=== PATIENT | male | born 2000 | race Caucasian/White ===

== ENCOUNTER 2020-10-29 00:44 | Day surgery (SDC) | payer BC, SELFPAY ==
[2020-10-27 10:40] VITALS: BMI 22.4
--- NOTE | 2020-10-27 14:20 | PM.IMHP ---
H&P: HPI History of Present Illness Date/Time: 10/27/20 14:20 Patient presents for planned surgical procedure no changes in history symptoms. Chief Complaint: Chronic tonsillitis, recurrent tonsillitis, chronic pharyngitis,recurrent pharyngitis Review of Systems Constitutional: Constitutional: Denies fatigue, Denies fever(s) and Denies lethargy Eyes: Eyes: Denies blurry vision and Denies change in vision ENT: Reports as per HPI Cardiovascular: Cardiovascular: Denies chest pain Respiratory: Respiratory: Denies cough Endocrine: Endocrine: Denies fatigue Hematologic/Lymphatic: Hematologic/Lymphatic: Denies easy bleeding, Denies easy bruising and Denies lymphadenopathy Allergic/Immunologic: Allergic/Immunologic: Denies seasonal rhinorrhea [facility] Past Medical History Medical History Elevated blood pressure reading Family History Family History Father Diabetes mellitus Grandparent Diabetes mellitus Heart disease Grandparent Cancer Heart disease Other Family history of coronary artery disease Hypertension Social History Social History Smoking status: Never smoker Alcohol intake: current Drinks per week: 1 Substance use: never Substance use type: does not use Living arrangements: with family Spiritual care concerns: No Meds Home Medications and Allergies Home Medications Medication Instructions Recorded Confirmed Type finasteride 1 mg PO DAILY 10/27/20 10/27/20 History Allergies Allergy/AdvReac Type Severity Reaction Status Date / Time No Known Allergies Allergy Verified 10/27/20 10:38 Exam Const: General: cooperative, healthy appearing, comfortable, well developed and alert HENMT: Head: normal to inspection, normocephalic and atraumatic Ears: hearing grossly normal bilaterally, external ears normal, TM's normal bilaterally and EAC's normal General nose exam: Normal external nose present, Normal nares present, No nasal polyps present, Normal nasal mucous membranes and turbinates present and Normal septum present Face and sinus: normal facial exam Mouth: Yes Normal oral and palatal mucosa present, Yes lip normal, Yes tongue normal, Yes oropharynx normal and Yes moist mucous membranes Teeth and gingiva: dentition normal and gingiva normal Throat: posterior oropharynx normal, tonisls abnormal ( 3+ cryptic edematous stones) and uvula midline Eyes: General: appearance normal, both eyes and all related structures Periorbital: periorbital findings normal Eyelids: eyelids normal Conjunctivae: conjunctivae normal Sclera: sclerae normal Neck: Neck: normal visual inspection, full ROM and no lymphadenopathy Thyroid: thyroid normal Lymphatic: no lymphadenopathy noted Resp: Effort & Inspection: normal respiratory effort and able to speak in complete sentences Cardio: Jugular venous distension: no JVD Neuro: Cranial nerves: Yes CN's II-XII intact bilaterally Assessment and Plan Assessment and plan (1) Chronic tonsillitis: Code(s): J35.01 - Chronic tonsillitis Status: Acute Assessment and Plan: plan is for the OR for tonsillectomy. Risks were discussed in great detail including bleeding infection damage to surrounding structures need for further procedures tongue on miss tongue pain dental pain accidental knocking out of teeth coughing ear pain halitosis. Patient voiced understanding of these risks and agreed also was discussed the significant risk 3-5% of postoperative bleeding. (2) Recurrent tonsillitis: Code(s): J03.91 - Acute recurrent tonsillitis, unspecified Status: Acute
[2020-10-29] VITALS (8 sets, daily range): BP systolic 80–138; BP diastolic 48–81; PULSE 54–84; RESP 12–16; TEMP 36.9; O2SAT 93–100
--- NOTE | 2020-10-29 07:03 | WPDHPUPDATE1 ---
History and Physical Update Update Date/Time: 10/29/20 07:03 History and Physical has been reviewed, including an updated exam of the patient. There are NO changes in the patient's condition. Risks, benefits, and alternatives have been discussed and questions answered. Patient agrees to proceed with procedure.
[2020-10-29] MEDS: ACETAMINOPHEN 500 MG TABLET 1000 MG PO (08:48)
--- NOTE | 2020-10-29 09:39 | P.PNAN_ITS ---
Anes - Initial Pre Proc Eval Procedure: Operation Date: 10/29/20 10:30 Proposed Procedures p Tonsillectomy - Gab Fitzgerald MD Date/Time: 10/29/20 09:39 Surgeon: Gab Fitzgerald MD Pre Op Diagnosis: chronic tonsilitis Patient Data Age: 19 Gender: M Height: 1.83 m Weight: 79.75 kg Allergies Allergy/AdvReac Type Severity Reaction Status Date / Time No Known Allergies Allergy Verified 10/29/20 08:45 Home Medications Medication Instructions Recorded Confirmed Type finasteride 1 mg PO DAILY 10/27/20 10/29/20 History Patient hx anesthesia problems: none Family hx anesthesia problems: none [facility] Past Medical History Medical History Elevated blood pressure reading Family History Family History Father Diabetes mellitus Grandparent Diabetes mellitus Heart disease Grandparent Cancer Heart disease Other Family history of coronary artery disease Hypertension Social History Social History Smoking status: Never smoker Alcohol intake: current Drinks per week: 1 Substance use: never Substance use type: does not use Living arrangements: with family Spiritual care concerns: No Anes - Eval Final PreProcedure Day of Procedure 10/29/20 09:39 Patient weight: normal Heart: regular rate and rhythm Lungs: clear to auscultation Airway: Mallampati scale class 1 Neurological: alert and oriented Last oral intake: >/= 8 hours ASA classification: I Emergent: no Anesthetic plan: proceed Anesthesia type and monitoring: general ETT and standard monitoring Informed Consent: The patient's anesthetic plan and its attendant risks and benefits were discussed with the patient/family/POA. Questions were solicited and answers provided to the satisfaction of the patient/family/POA.
[2020-10-29] MEDS: LACTATED RINGERS 1,000 ML 30 ML IV CONT ×2 (09:50→11:23)
--- NOTE | 2020-10-29 11:32 | P.OP_ITS ---
Procedure Note - Detailed Date of Procedure 10/29/20 Pre-op Diagnosis chronic tonsilitis , recurrent tonsillitis Post-op Diagnosis same Procedure Performed tonsillectomy Surgeon Gab Fitzgerald MD Analog Circuit Designer none Anesthesia general Indications see above Findings 3+ endophytic tonsils cryptic stones purulence present Description of Procedure patient was correctly identified consent was verified in the preoperative holding area. The patient was then brought to the operating room and a time-out was performed. General anesthesia was induced and endotracheal tube was secured the patient's airway. The patient was then prepped and draped for the aforementioned procedures. Second timeout performed. McIvor mouth gag inserted revealing tonsils which are described above. Tonsils grasped with curved Allis forceps removed in the extracapsular plane using Bovie electrocautery at a setting of 10. Hemostasis achieved using intermittent application of suction Bovie electrocautery at a setting of 12. McIvor mouthgag lowered and reopened 30 seconds later to reveal adequate hemostasis. McIvor mouth gag was then removed. Of note this was performed bilaterally the exact same procedure with the exact same findings. Care the patient was turned over to Anesthesiology I performed all dictated portions. Estimated Blood Loss 10 Drains No Packing No Pathology yes Complications No immediate complications Condition stable Disposition PACU
[2020-10-29] MEDS: fentaNYL CITRATE INJ (*CRX) 100 MCG/2 ML VIAL 25 MCG IV PUSH ×8 (11:49→13:02)
[2020-10-29] MEDS: oxyCODONE HCL (*CRX) 5 MG TAB IR PO (12:30)
== END 2020-10-29 13:15 | disposition home or self-care (01) ==
PROVIDERS: PCP Family Medicine; Visit Provider Otolaryngology
PROC: (CPT 42826; principal; 2020-10-29 10:30)
DX: J35.01 Chronic tonsillitis (principal)
CPT/HCPCS: 42826; 88302; A9270; J0330; J1100; J2250; J2405; J2704; J3010; J7120

== ENCOUNTER 2020-11-02 00:18 | Emergency (ER) | payer BC, SELFPAY ==
--- NOTE | 2020-11-02 00:22 | PC.NURSE ---
Pt here c mother who reports pt had tonsillectomy 4 days ago and has vomited blood, and now appear altered. on arrival, pt hyperventilating and states I'm gonna pass out. placed in wc with assist of flatbed truck driver and taken to room 8.
[2020-11-02 00:32] VITALS: BP 123/47; PULSE 87; RESP 18; TEMP 37.2; O2SAT 100
[2020-11-02] MEDS: SODIUM CHLORIDE 0.9% IV 1,000 ML 999 ML IV CONT ×2 (00:58)
[2020-11-02] MEDS: ONDANSETRON INJ 4 MG/2 ML VIAL IV PUSH (01:00)
[2020-11-02] MEDS: MORPHINE SULFATE (*CRX) 4 MG/ML INJ IV PUSH ×2 (01:02→04:59)
[2020-11-02 01:11] LABS: Alanine Aminotransferase 21 U/L (4-50); Albumin Level 4.7 g/dL (3.5-5.1); Alkaline Phosphatase 98 U/L (38-126); Anion Gap 20 mmol/L (8-16); Aspartate Amino Transferase 25 U/L (17-59); Bilirubin,Total 1.3 mg/dL (0.2-1.3); Blood Urea Nitrogen 17 mg/dL (9-20); Calcium 10.5 mg/dL (8.4-10.2); Carbon Dioxide 21 mmol/L (22-30); Chloride 96 mmol/L (98-107); Estimated CRCL calculation 104 ml/min; Estimated Glomerular Filt Rate > 60; Glucose 109 mg/dL (65-110); Potassium 3.5 mmol/L (3.4-5.0); Sodium 137 mmol/L (137-145)
[2020-11-02 01:16] LABS: Basophils Percent Auto 0.1 % (0.2-1.2); Eosinophils Absolute Auto 0.1 K/mm3 (0-0.3); Eosinophils Percent Auto 1.2 % (0-4.4); Hematocrit 48.9 % (42.0-52.0); Hemoglobin 16.9 g/dL (14.0-18.0); Immature Granulocyte Absolute 0.02 K/mm3 (0.00-0.031); Immature Granulocyte Percent A 0.2 % (0-0.5); Lymphocytes Absolute Auto 2.53 K/mm3 (0.9-3.2); Mean Corpuscular HGB Conc 34.6 g/dl (32-36); Mean Corpuscular Hemoglobin 29.9 pg (26-34); Mean Corpuscular Volume 86.4 fl (80-100); Monocytes Absolute Auto 0.7 K/mm3 (0.1-0.6); Monocytes Percent Auto 8.6 % (2.6-8.5); Neutrophils Absolute Auto 4.8 K/mm3 (1.3-6.7); Neutrophils Percent Auto 58.9 % (45.5-73.1); Platelet Count Result 221 k/mm3 (150-375); Red Blood Count 5.66 M/mm3 (4.6-6.20); Red Cell Distribution Width 11.5 % (11.5-14.5); White Blood Count 8.2 K/mm3 (4.5-10.0)
[2020-11-02 01:22] LABS: Add Urine Microscopic? YES; Appearance Urine Clear (Clear); Bacteria Urine Trace /hpf; Bilirubin Urine Negative (Negative); Blood Urine Negative (Negative); Color Urine Yellow (Yellow); Glucose Urine UA Negative (Negative); Ketones Urine 2+ mg/dL (Negative); Leukocyte Esterase Ur Negative LEU/UL (Negative); Mucus Urine Few /lpf; Nitrate Urine Negative (Negative); Protein Urine Negative (Negative); RBC Urine 0-2 /hpf (0-2); Specific Grav Ur 1.026 (1.001-1.035); Squamous Epithelial Cell Urine Rare /hpf (Few); WBC Urine 0-3 /hpf
--- NOTE | 2020-11-02 02:58 | ED.GENADULT ---
HPI - General Adult General Chief complaint: Unspecified Stated complaint: altered Time Seen by Provider: 11/02/20 00:24 History of Present Illness HPI narrative: Patient 19-year-old gentleman who presents the emergency department with chief complaint of confusion. Patient reports that he just had his tonsils removed on Sunday and subsequently has not been eating and drinking. The patient states his evening he spit up a little bit of blood and also has not been eating and drinking and feels extremely dry. The patient states he feels very lethargic reports that is not really been talking much but until today when he actually started talking some factors. Patient reports that surgery was done by Dr. Fitzgerald. Related Data Home Medications Medication Instructions Recorded Confirmed finasteride 1 mg PO DAILY 10/27/20 10/29/20 Allergies Allergy/AdvReac Type Severity Reaction Status Date / Time No Known Allergies Allergy Verified 11/02/20 00:58 Review of Systems Review of Systems: Narrative: A 10 system review of systems was completed on the patient and is negative except for what is stated in the HPI. Nursing and ancillary documentation was reviewed. PMFSH Past Medical History Medical History Elevated blood pressure reading Family History Family History Father Diabetes mellitus Grandparent Diabetes mellitus Heart disease Grandparent Cancer Heart disease Other Family history of coronary artery disease Hypertension Social History Social History Smoking status: Never smoker Alcohol intake: current Drinks per week: 1 Substance use: never Substance use type: does not use Spiritual care concerns: No Exam Narrative: Exam Narrative: GENERAL: Well-appearing, well-nourished, and in no acute distress. HEAD: Normocephalic, atraumatic. EYES: PERRLA and EOMI. ENT: Nares clear, no rhinorrhea or epistaxis. Dry mucous membranes eschar intact NECK: Supple. CHEST: Clear to auscultation. No respiratory distress. HEART: Regular rate and rhythm. No murmur heard. Normal peripheral pulses. ABDOMEN: Soft, nontender, nondistended, normal active bowel sounds. EXTREMITIES: Normal range of motion. No edema. SKIN: Warm, dry, no rash. NEURO: No focal deficits. Alert and oriented x3. PSYCH: Normal mood and affect. Course Vital Signs Vital signs: Vital Signs Temperature 37.2 C 11/02/20 00:32 Pulse Rate 87 11/02/20 00:32 Respiratory Rate 18 11/02/20 00:32 Blood Pressure 123/47 L 11/02/20 00:32 Pulse Oximetry 100 11/02/20 00:32 Temperature 37.2 C 11/02/20 00:32 Pulse Rate 87 11/02/20 00:32 Respiratory Rate 18 11/02/20 00:32 Blood Pressure 123/47 L 11/02/20 00:32 Pulse Oximetry 100 11/02/20 00:32 Medical Decision Making Vital Signs Vital Signs: Vital Signs Temperature 37.2 C 11/02/20 00:32 Pulse Rate 87 11/02/20 00:32 Respiratory Rate 18 11/02/20 00:32 Blood Pressure 123/47 L 11/02/20 00:32 Pulse Oximetry 100 11/02/20 00:32 Temperature 37.2 C 11/02/20 00:32 Pulse Rate 87 11/02/20 00:32 Respiratory Rate 18 11/02/20 00:32 Blood Pressure 123/47 L 11/02/20 00:32 Pulse Oximetry 100 11/02/20 00:32 Lab Data Result diagrams: 11/02/20 00:55 11/02/20 00:55 Labs: Lab Results 11/02/20 11/02/20 11/02/20 Range/Units 00:55 00:55 01:09 WBC 8.2 (4.5-10.0) K/mm3 RBC 5.66 (4.6-6.20) M/mm3 Hgb 16.9 (14.0-18.0) g/dL Hct 48.9 (42.0-52.0) % MCV 86.4 (80-100) fl MCH 29.9 (26-34) pg MCHC 34.6 (32-36) g/dl RDW 11.5 (11.5-14.5) % Plt Count 221 (150-375) k/mm3 MPV 9.0 (7.4-10.4) fl Immature Gran % (Auto) 0.2 (0-0.5) % Neut % (Auto) 58.9 (45.5-73.1) % Lymph % (Auto)
[2020-11-02] MEDS: LIDOCAINE HCL 2% VISC SOLN 15 ML UDC PO (04:38)
[2020-11-02 05:16] VITALS: BP 128/63; PULSE 62; RESP 14; O2SAT 100
== END 2020-11-02 05:05 | disposition home or self-care (01) ==
PROVIDERS: Emergency Provider Emergency Medicine; PCP Family Medicine
DX: G89.18 Other acute postprocedural pain (principal)
CPT/HCPCS: 36415; 80053; 81001; 85025; 96361; 96374; 96375; 96376; 99284; J2270; J2405; J7030

== ENCOUNTER 2021-06-08 15:32 | Outpatient (CLI) | payer BC, SELFPAY ==
--- NOTE | 2021-06-08 15:49 | ECG_ITS ---
Measurements Intervals [place] Rate: 63 P: 69 LA: 172 QRS: 82 QRSD: 99 T: 44 QT: 384 QTc: 393 Interpretive Statements SINUS RHYTHM WITH SINUS ARRHYTHMIA MINIMAL Q WAVES- INF/LAT LEADS BORDERLINE ECG Electronically Signed On 06-08-2021 15:58:16 [facility] C[facility] NURSE PRACTITIONER by Kishor Stewart D.O.
== END 2021-06-08 15:33 | disposition home or self-care (01) ==
LOC: ANHLAB 15:35 → ANHCARD 15:37
PROVIDERS: PCP Family Medicine; Visit Provider Nurse Practitioner Family
DX: R07.9 Chest pain, unspecified (principal)
CPT/HCPCS: 93005

== ENCOUNTER 2021-07-01 10:40 | Outpatient (CLI) | payer BC, SELFPAY ==
--- NOTE | 2021-07-05 11:53 | WPDHOLTEREM ---
Holter/Event Monitor Holter/Event Monitor Date of procedure: 07/01/21 Holter/Event Procedure: 24 Hr Holter Monitor Indications: Palpitations Conclusion: 1. 24 hour holter monitor on 07/01/21. 2. Underlying rhythm is sinus rhythm. HR range 37-121 bpm; average HR 67 bpm. HR at 37 bpm was at 08:35. 3. There are 52 premature supraventricular complexes. No supraventricular tachycardia. 4. There is 1 premature ventricular complex. No ventricular tachycardia. 5. No sinoatrial or atrioventricular blocks. No significant pauses greater than 2 seconds. 6. No symptoms available for correlation.
== END 2021-07-01 10:41 | disposition home or self-care (01) ==
LOC: ANHCARD 10:41
PROVIDERS: PCP Family Medicine; Visit Provider Nurse Practitioner Family
DX: R00.2 Palpitations (principal); R07.9 Chest pain, unspecified
CPT/HCPCS: 93225; 93226

== ENCOUNTER 2022-02-28 13:30 | Outpatient (RCR) | payer BC, SELFPAY ==
--- NOTE | 2022-02-02 13:50 | OTOPEVAL1 ---
Assessment and note entered by GIOVANY De León/Lissett Evaluation Information Assessment Status Evaluation Diagnosis wrist sprain Onset November 2021 Subjective Information Patient reports bilateral wrist pain on dorsal and volar aspect of wrist and tenderness over flexor tendons, dorsal aspect of thumbs which feels like a bruise , within the past month pain has gone into volar aspects of forearms. Patient describes forearm pain as numbness or uncomfortable . 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 Patient reports has not gone to the gym as often since wrists have started to hurt, most pain in a wrist extension and flexed position. Per MD's note patients x ray is negative for fracture, dislocation, or bony destruction. Reported Pain Level Pain Score 6,4: Self Report Assessment OT Clinical Summary Jaiden is a 21 year old R hand dominant male who presents to outpatient OT with complaint of bilateral wrist and dorsal thumb pain. Patient reports pain and tightness in bilateral wrist with wrist extension and flexion, pain in thumb with gripping, sustained pinching tasks. Patient demonstrated tenderness over flexor tendons at the volar aspect of wrist. Patient demonstrated decreased food service director strength in R UE hand. Patient would benefit from skilled OT for instruction on HEP as tolerated, modalities, manual therapy to address weakness and pain in bilateral UE wrists in order to improve participation with functional and daily tasks. Plan of Care Interventions Therapeutic Exercise,Manual Therapy,Therapeutic Activities,Hot Pack/Cold Pack,Ultrasound OT Services Indicated Yes These treatments will address the objective and functional deficits as defined above. The patient will be advanced safely and appropriately in order for the patient to progress towards his/her prior level of function. Additional exercises will be introduced and as well as a comprehensive home exercise program upon discharge, if needed, ?to ensure carryover of functional gains achieved in the clinic. This treatment plan has been reviewed and agreement upon by the patient.
--- NOTE | 2022-02-28 14:58 | OTOPDC ---
Assessment and note entered by GIOVANY De León/Lissett Evaluation Information Assessment Status Discharge Diagnosis forearm pain Onset November 2021 Subjective Information Patient reports bilateral pain/tightness on volar aspect of forearm over pronator teres muscle which causes numbness into the volar aspect of palm, digits 1-4 over the median nerve distribution. Additionally reports soreness of dorsal aspect of MP joint of thumbs which feels like a bruise . 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 Patient reports it continues to feel difficult to make a fist with numbness down forearm into hand. Patient reports work tasks that involve repetitive movements including forearm pronation/supination, sustained forearm pronation, wrist flexion/extension aggravate symptoms of forearm/hand numbness. Patient reports completing issued HEP materials including stretches/nerve glides help alleviate symptoms during exercises but not after completing. Patient reports has not consistently completed HEP materials, usually completes once every other day. Patient reports after therapist provides heat and soft tissue mobilization over pronator teres muscle, symptoms feel better and arm feels looser with less pain. Reported Pain Level Pain Score 4,6: Self Report Assessment OT Clinical Summary Jaiden is a 21 year old R hand dominant male presenting to Outpatient OT for re-evaluation of bilateral forearm pain with numbness into volar palm and digits 1-4. 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 Patient reports continued symptoms in arms and wants to follow up with MD at Dr. Quiroz office for possible MRI. Patient educated on completing HEP materials including nerve glides and stretches consistently, patient verbalizes understanding. Patient does not wish to continue with treatments at this time. Will discharge from skilled OT with patient independent with HEP materials. Plan of Care OT Services Indicated No
== END 2022-03-01 08:50 | disposition home or self-care (01) ==
LOC: ANHOT 13:30
PROVIDERS: PCP Family Medicine; Visit Provider Nurse Practitioner
DX: M25.532 Pain in left wrist (principal); M25.531 Pain in right wrist
CPT/HCPCS: 97018; 97110; 97140; 97165

== ENCOUNTER 2022-04-24 08:59 | Outpatient (CLI) | payer BC, SELFPAY ==
--- NOTE | 2022-04-24 11:00 | NEURO_ITS ---
Impression: # Complains of numbness of hands. # Bilateral Carpal Tunnel Syndrome. # Left ulnar neuropathy around the elbow. # Needle/EMG exam neurogenic. Motor Nerve Conduction Upper Extremities Median Nerve Conduction Velocity (m/sec) Terminal Latency (msec) Response Voltage(mV) Elbow-Wrist Wrist Elbow Wrist Right 62 4.3 4 4 Left 60 4.4 3 3 Ulnar Nerve Conduction Velocity (m/sec) Terminal Latency (msec) Response Voltage(mV) Above Elbow Below Elbow Wrist Above Elbow Below Elbow Wrist Right 63 3.0 7 8 Left 52 56 3.0 8 6 8 F-Wave Latency Median (ms) Ulnar (ms) Right 29.8 30.2 Left 30.9 30.2 Sensory Nerve Conduction Upper Extremities Median Nerve Stimulation Terminal Latency (msec) Wrist/Digit Response Voltage (uV) Wrist Right 3.8/3.7 95/97 Left 3.8/3.7 73/92 Ulnar Nerve Stimulation Terminal Latency (msec) Wrist/Digit Response Voltage (uV) Wrist Right 2.6 26 Left 3.0 98 Radial Nerve Terminal Latency (msec) Response Voltage(mV) Right 2.6 36 Left 2.5 24 Left Right Muscles Examined Fibrillation Fasciculation Scarcity Voltage Duration Left Right Left Right Left Right Left Right Left Right Deltoid Biceps X X Brachioradialis Triceps X X Pronator Teres X X Ext Indicis X X Ext Digitorum X X Abd Poll Brev Reduced Reduced >12ms >12ms X X 1st Dorsal Interosseus Reduced >12ms Paraspinals MTDD
== END 2022-04-24 09:00 | disposition home or self-care (01) ==
PROVIDERS: PCP Family Medicine; Visit Provider Nurse Practitioner
DX: G56.03 Carpal tunnel syndrome, bilateral upper limbs (principal); G56.22 Lesion of ulnar nerve, left upper limb
CPT/HCPCS: 95886; 95911

== ENCOUNTER 2022-05-25 15:00 | Outpatient (RCR) | payer BC, SELFPAY ==
--- NOTE | 2022-05-12 13:37 | OTOPEVAL1 ---
Assessment and note entered by Miki Norwood, GIOVANY/Lissett, CHT Evaluation Information Assessment Status Evaluation Diagnosis bilateral carpal tunnel Subjective Information Jaiden reports bilateral UE numbness and intermittent tingling. Reporting these symptoms in the forearms through the hands and have been going on for about 8 months. 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 He likes to work out/lift weights and he has not been able to do that due to pain. Reporting constant hand/thumb pain. EMG exam (+) bilateral carpal tunnel syndrome and left ulnar neuropathy. Reported Pain Level Pain Score 0,4: Self Report Additional Pain Score Comments Reports no forearm/hand pain at rest or when he hasn't used his hands very much. With UE use, he reports pain will increase to 8-9/10. Assessment OT Clinical Summary Jaiden is a 21 year-old, right handed male who is referred to outpatient OT with dx of bilateral carpal tunnel syndrome. EMG also positive for left cubital tunnel syndrome. Testing today reveals normal strength and normal sensation (as tested by the [place] monofilaments). He does demonstrate positive tests for ulnar neuropathy bilaterally (elbow flexion test). Negative Tinel's for carpal tunnel as well as negative carpal compression. He will benefit from skilled OT for exercises and education for improved posture and body mechanics, HEP and education on reduced ulnar nerve compression with ADLs, and use of modalities to treat pain. Plan of Care Interventions Therapeutic Exercise,Manual Therapy,Therapeutic Activities,Hot Pack/Cold Pack,Ultrasound,Paraffin OT Services Indicated Yes Treatment Frequency and 2x/week for 6 weeks Duration These treatments will address the objective and functional deficits as defined above. The patient will be advanced safely and appropriately in order for the patient to progress towards his/her prior level of function. Additional exercises will be introduced and as well as a comprehensive home exercise program upon discharge, if needed, ?to ensure carryover of functional gains achieved in the clinic. This treatment plan has been reviewed and agreement upon by the patient.
--- NOTE | 2022-05-25 15:54 | OTOPPROGNS ---
Assessment and note entered by Miki Norwood, GIOVANY/Lissett, CHT Evaluation Information Assessment Status Progress Diagnosis bilateral carpal tunnel, bilateral wrist pain Subjective Information Jaiden has participated in 4 outpatient sessions for bilateral UE pain and tingling. He has been working on postural HEP, nerve glides, and stretching to help relieve the symptoms. Today he is reporting no change in symptoms. States he has been compliant with the HEP. Assessment OT Clinical Summary Jaiden is a 21 year-old, right handed male who is referred to outpatient OT with dx of bilateral carpal tunnel syndrome. EMG also positive for left cubital tunnel syndrome. Progress report being completed today for insurance update. At this time the patient continues to measure WNL for strength and sensation (as tested by the [place]ol[place] monofilaments). Progress noted with reduced ulnar paresthesias with the elbow flexion test, indicative that the nerve sensitivity is decreasing with therapeutic intervention. He will benefit from continued skilled OT for exercises and education for improved posture and body mechanics, HEP and education on reduced ulnar nerve compression with ADLs, and use of modalities to treat pain and soft tissue tightness. Plan of Care Interventions Therapeutic Exercise,Manual Therapy,Therapeutic Activities,Hot Pack/Cold Pack,Ultrasound,Paraffin OT Services Indicated Yes Treatment Frequency and 2x/week for 3 weeks Duration These treatments will address the objective and functional deficits as defined above. The patient will be advanced safely and appropriately in order for the patient to progress towards his/her prior level of function. Additional exercises will be introduced and as well as a comprehensive home exercise program upon discharge, if needed, ?to ensure carryover of functional gains achieved in the clinic. This treatment plan has been reviewed and agreement upon by the patient.
--- NOTE | 2022-06-01 11:53 | OTOPDC ---
Assessment and note entered by Miki Norwood, OTKiki/Lissett, CHT Evaluation Information Assessment Status Discharge Assessment OT Clinical Summary Jaiden was seen for 5 OT sessions at our clinic. His insurance only approved 5 visits. A request was sent to his insurance for authorization for 6 additional visits and this was denied. The insurance company did not authorize any additional visits at this time stating the patient should be doing his exercises at home and did not need further sessions. Unfortunately we will be discharging him at this time. He is independent with all materials. Please refer to most recent progress report, dated 05/25/22, for most updated information.
== END 2022-06-02 10:20 | disposition home or self-care (01) ==
LOC: ANHOT 15:00
PROVIDERS: PCP Family Medicine; Visit Provider Nurse Practitioner
DX: G56.03 Carpal tunnel syndrome, bilateral upper limbs (principal); M25.531 Pain in right wrist; M25.532 Pain in left wrist
CPT/HCPCS: 97018; 97110; 97140; 97167

== ENCOUNTER 2022-10-11 19:31 | Emergency (ER) | payer OTHER, SELFPAY ==
--- NOTE | ~2022-10-11 | XR_ITS ---
EXAMINATION: XR chest 2V Exam Date/Time: 10/11/2022 19:50 CDT HISTORY: cp INTERMITTENT CHEST PAIN X 1 YEAR WORSENING PAST 2 Comparison: 03/10/2013. RESULT: Lines, tubes, and devices: None. Lungs and pleura: Clear. Cardiomediastinal silhouette: Stable. Other: No acute osseous or upper abdominal finding. IMPRESSION: No acute cardiopulmonary process. Reviewed, dictated and finalized at location K.
--- NOTE | 2022-10-11 19:33 | ECG_ITS ---
Measurements Intervals [place] Rate: 64 P: 64 [place]: 163 QRS: 87 QRSD: 103 T: 55 QT: 378 QTc: 390 Interpretive Statements SINUS RHYTHM NORMAL ELECTROCARDIOGRAM COMPARED TO ECG 06/08/2021 15:54:15 NO SIGNIFICANT CHANGES Electronically Signed On 10-13-2022 16:52:15 CDT by Henry Goncalves M.D.
[2022-10-11 19:40] VITALS: BP 153/81; PULSE 70; RESP 15; TEMP 36.9; O2SAT 100
[2022-10-11] MEDS: ASPIRIN 81 MG CHEWABLE TABLET 324 MG PO (19:58)
[2022-10-11 20:08] LABS: Basophils Percent Auto 0.3 % (0.2-1.2); Eosinophils Absolute Auto 0.3 K/mm3 (0-0.3); Eosinophils Percent Auto 4.4 % (0-4.4); Hemoglobin 15.6 g/dL (14.0-18.0); Immature Granulocyte Absolute 0.01 K/mm3 (0.00-0.031); Immature Granulocyte Percent A 0.2 % (0-0.5); Lymphocytes Absolute Auto 2.54 K/mm3 (0.9-3.2); Lymphocytes Percent Auto 40.1 % (18.3-44.2); Mean Corpuscular HGB Conc 34.7 g/dl (32-36); Mean Corpuscular Hemoglobin 30.5 pg (26-34); Mean Corpuscular Volume 87.9 fl (80-100); Mean Platelet Volume 9.1 fl (7.4-10.4); Monocytes Absolute Auto 0.5 K/mm3 (0.1-0.6); Monocytes Percent Auto 7.7 % (2.6-8.5); Neutrophils Percent Auto 47.3 % (45.5-73.1); Platelet Count Result 222 k/mm3 (150-375); Red Blood Count 5.12 M/mm3 (4.6-6.20); Red Cell Distribution Width 11.8 % (11.5-14.5); White Blood Count 6.3 K/mm3 (4.5-10.0)
[2022-10-11 20:12] LABS: Alanine Aminotransferase 27 U/L (6-50); Albumin Level 4.7 g/dL (3.5-5.1); Alkaline Phosphatase 63 U/L (38-126); Anion Gap 5 mmol/L (8-16); Aspartate Amino Transferase 29 U/L (17-59); Bilirubin,Total 0.5 mg/dL (0.2-1.3); Blood Urea Nitrogen 26 mg/dL (9-20); Calcium 9.6 mg/dL (8.4-10.2); Carbon Dioxide 31 mmol/L (22-30); Chloride 101 mmol/L (98-107); Estimated CRCL calculation 118 ml/min; Estimated Glomerular Filt Rate > 60; Glucose 101 mg/dL (65-110); Lipase 163 U/L (23-300); Potassium 3.7 mmol/L (3.4-5.0); Sodium 137 mmol/L (137-145)
--- NOTE | 2022-10-11 20:13 | ED.CHESTPAIN ---
HPI - Chest Pain General Chief Complaint: Chest Pain Stated Complaint: CP Time Seen by Provider: 10/11/22 19:52 History of Present Illness HPI narrative: 21-year-old male presented the emergency department for evaluation of intermittent substernal chest pain. Patient reports over the last few days he has had a sharp chest pain that is unchanged with exertion. Patient reports that he does have a primary issue of cardiac issues . He was having some issues with heart palpitations a few years ago and had an outpatient work-up including EKG and outpatient MRI. Patient was told at that time that he had an enlarged left ventricle and some irregular heartbeat but was told that he needed not did have follow-up for a few more years. Patient states that when he had these changes symptoms over the last few days he became concerned and wanted to be evaluated. Patient denies any radiation of the pain into his back or to his arm with these episodes. Patient denies any associated shortness of breath. Patient denies any associated nausea vomiting or diarrhea. Related Data Home Medications Medication Instructions Recorded Confirmed No Home Medications 06/14/22 08/29/22 Allergies Allergy/AdvReac Type Severity Reaction Status Date / Time No Known Allergies Allergy Verified 10/11/22 20:03 Review of Systems Review of Systems: All systems reviewed & are unremarkable except as noted in HPI and below PMFSH Past Medical History Medical History BMI 22.0-22.9, adult BMI 23.0-23.9, adult BMI 24.0-24.9, adult Elevated blood pressure reading Surgical History Surgical History Hx of tonsillectomy Family History Family History Father Diabetes mellitus Grandparent Diabetes mellitus Heart disease Grandparent Cancer Heart disease Mother No problems noted. Sibling No problems noted. Other Family history of coronary artery disease Hypertension Social History Social History Smoking status: Never smoker Second hand tobacco smoke exposure: No Alcohol intake: current Drinks per week: 1 Substance use: never Substance use type: does not use Lack of Transportation: No Lack of Food: Never True Current Housing: I Have Housing Concerned About Future Housing: No Difficulty Paying Gas/Electric Bills: No Difficulty Paying for Meds: No Currently Unemployed: No Education: Associate Degree Difficulty w/ Childcare or Family Care: No Living arrangements: with roommate(s) Occupation/Education: student 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 Gender identity (if verbalized by the patient): Male Spiritual care concerns: No Agree to blood products: Yes Exam Narrative: APPEARANCE: Well appearing, no pain, no distress, well-nourished. HEAD: normocephalic, atraumatic. EYES: PERRLA/EOMI, conjunctivae clear. NOSE: Normal no drainage NECK: Supple. No adenopathy, no masses. RESPIRATORY: Airway patent, respirations nonlabored. Clear to auscultation bilaterally, no rales, rhonchi, wheezing. CARDIOVASCULAR: Regular rate and rhythm without murmurs rubs or gallops. ABDOMINAL: Soft, nontender, nondistended, normal bowel sounds MUSCULOSKELETAL: Moves all extremities. Strength/ROM intact, No edema, No calf tenderness. NEURO: Alert. Cranial nerves II through XII intact. Good gait. Good coordination SKIN: Warm, dry. Normal Color Course Course Emergency Course: 21-year-old male presented the ED for evaluation of substernal chest pain. EKG shows a normal sinus rhythm with no evidence of ischemia. Patient was afebrile with no leukocytosis and a stable hemoglobin, patient's electrolytes showed no contributory abnorma
[2022-10-11 20:14] LABS: Partial Thromboplastin Time 26.5 SECONDS (22.3-36.8); Prothrombin Time 13.9 Seconds (11.1-14.7)
[2022-10-11 20:24] LABS: Troponin I < 0.012 ng/mL (0.000-0.034)
[2022-10-11 21:09] LABS: D Dimer < 0.27 ug/mL (<0.48)
[2022-10-11 23:02] LABS: Troponin I < 0.012 ng/mL (0.000-0.034)
[2022-10-12 00:23] VITALS: BP 140/68; PULSE 70; RESP 15; O2SAT 98
== END 2022-10-12 00:24 | disposition home or self-care (01) ==
PROVIDERS: Emergency Provider Emergency Medicine; PCP Family Medicine
DX: R07.89 Other chest pain (principal)
CPT/HCPCS: 36415; 71046; 80053; 83690; 84484; 85025; 85380; 85610; 85730; 93005; 99284; A9270

== ENCOUNTER 2024-11-17 19:15 | Emergency (ER) | payer OTHER, SELFPAY ==
--- NOTE | 2024-11-17 19:18 | ED_ITS ---
HPI - Ear Problem General Chief complaint: Ear Stated complaint: ear pain in both ears Time Seen by Provider: 11/17/24 19:18 Source: patient Mode of arrival: ambulatory Limitations: no limitations History of Present Illness HPI Narrative: Jaiden is a 23-year-old male patient presenting to the clinic today with complaints of chronic sore throat and bilateral ear pain. He reports this has been going on for a couple months. States that he was seen in an Urgent care in June and given prescription for Augmentin to treat a double ear infection. States his symptoms improved however it feels like it did not fully resolved. He has not seen his primary care doctor or ENT doctor for this. Denies any nasal congestion or sinus pressure. Does feel as though there is some drainage in the back of his throat. He has seen an ENT doctor in the past. No fevers, chills, body aches. Denies any shortness of breath or chest pain. Has been taking ibuprofen for pain. Rates pain currently a 10/23. Related Data Home Medications ?Medication ?Instructions ?Recorded ?Confirmed ?Last Taken ?Type No Home Medications 06/14/22 11/17/24 Unknown History Allergies Allergy/AdvReac Type Severity Reaction Status Date / Time No Known Allergies Allergy Verified 11/17/24 19:22 Review of Systems Review of Systems: Pertinent positives per HPI. Patient denies any fever, chills, rash, headache, visual changes, dizziness, cough, runny nose, sore throat, shortness of breath, chest pain, palpitations, nausea, vomiting, diarrhea, constipation, abdominal pain, or any urinary issues. PMFSH Past Medical History Medical History BMI 22.0-22.9, adult BMI 23.0-23.9, adult BMI 24.0-24.9, adult Elevated blood pressure reading Surgical History Surgical History Hx of tonsillectomy Family History Family History Father Diabetes mellitus Grandparent Diabetes mellitus Heart disease Grandparent Cancer Heart disease Mother No problems noted. Sibling No problems noted. Other Family history of coronary artery disease Hypertension Social History Social History Smoking status: Never smoker Second hand tobacco smoke exposure: No Alcohol intake: current Drinks per week: 1 Substance use: never Substance use type: does not use Lack of Transportation: No Lack of Food: Never True Current Housing: I Have Housing Concerned About Future Housing: No Difficulty Paying Gas/Electric Bills: No Difficulty Paying for Meds: No Currently Unemployed: No Education: Associate Degree Difficulty w/ Childcare or Family Care: No Living arrangements: with roommate(s) Occupation/Education: student 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 Gender identity (if verbalized by the patient): Male Spiritual care concerns: No Agree to blood products: Yes Comments At the time of my signature, I reviewed and agree with the nursing past medical, surgical, social, and family history. There is no relevant family history pertinent to the patient complaint. Exam Narrative: General: Well-developed, well nourished, in no apparent distress Head: Normocephalic, atraumatic Eyes: Pupils equally round and reactive to light bilaterally, EOM intact, sclera and conjunctive clear, no discharge, lids normal Ears: TMs intact and clear, ear canals ceruminous, no drainage, grossly hearing normal. Nose: Nares patent, clear discharge, mild inflammation, no sinus tenderness. Mouth: Oropharynx red without lesions or masses, good dentition, MMM. Postnasal drip Neck: Supple, trachea midline, no enlargement of anterior or posterior cervical nodes, no thyroid masses or goiter palpable. Cardio: Regular rate and rhythm, s1 and s2 normal, no murmur appreciated. Resp: Clear to auscultation bilaterally anteriorly and posteriorly, no rhonchi, rales, wheezing or rubs Course Course Emergency Course: Portions of this record may have been created with voice recognition software. Level of Care: Express Care Visit Vital Signs Vital signs: Vital Signs Temperature 36.7 C 11/17/24 19:24 Pulse Rate 73 11/17/24 19:24 Respiratory Rate 18 11/17/24 19:24 Blood Pressure 135/76 11/17/24 19:24 Pulse Oximetry 100 11/17/24 19:24 Oxygen Delivery Room Air 11/17/24 19:24 Temperature 36.7 C 11/17/24 19:24 Pulse Rate 73 08/04/25 19:24 Respiratory Rate 18 11/17/24 19:24 Blood Pressure 135/76 11/17/24 19:24 Pulse Oximetry 100 11/17/24 19:24 Oxygen Delivery Room Air 11/17/24 19:24 Vital signs reviewed Medical Decision Making MDM Narrative Medical decision making narrative: At the time of visit patient is resting comfortably on the exam table. Patient appears to be nontoxic. Complaints of chronic sore throat and bilateral ear pain. He reports this has been going on for a couple months. States that he was seen in an Urgent care in June and given prescription for Augmentin to treat a double ear infection. States his symptoms improved however it feels like it did not fully resolved.. He has not seen his primary care doctor or ENT doctor for this. Denies any nasal congestion or sinus pressure. Does feel as though there is some drainage in the back of his throat. He has seen an ENT doctor in the past. No fevers, chills, body aches. Denies any shortness of breath or chest pain. Has been taking ibuprofen for pain. Rates pain currently a 10/23. Labs: Strep test was performed and negative in the clinic today. We will send strep for culture. Plan: I suspect patient has chronic sore throat/ear pain/postnasal drip. Strep test was negative. We will send strep for culture. Recommend follow-up with ENT/PCP. Supportive measures were discussed with the patient and they voiced understanding discharge instructions and agrees to treatment plan. Return precautions reviewed Differential Diagnosis Differential Diagnosis: Otitis media, otitis externa, eustachian tube dysfunction, cerumen impaction, upper respiratory infection, serous otitis Vital Signs Vital Signs: Vital Signs Temperature 36.7 C 11/17/24 19:24 Pulse Rate 73 11/17/24 19:24 Respiratory Rate 18 11/17/24 19:24 Blood Pressure 135/76 11/17/24 19:24 Pulse Oximetry 100 11/17/24 19:24 Oxygen Delivery Room Air 11/17/24 19:24 Temperature 36.7 C 11/17/24 19:24 Pulse Rate 73 11/17/24 19:24 Respiratory Rate 18 11/17/24 19:24 Blood Pressure 135/76 11/17/24 19:24 Pulse Oximetry 100 11/17/24 19:24 Oxygen Delivery Room Air 11/17/24 19:24 Lab Data Labs: Lab Results 11/17/24 Range/Units 19:37 POC Grp A Strep Screen Negative (Negative) Discharge Plan Discharge Clinical Impression: Otalgia of both ears, PND (post-nasal drip), Pain in throat Patient Disposition: Home Condition: Stable Instructions: Antibiotic Form, Pharyngitis (ED), Earache (ED), Postnasal Drip (DC) Additional Instructions: Strep test was negative in the clinic today. We will send strep for culture if this comes back positive we will contact you and place you on antibiotics at that time. No sign of bacterial infection in the clinic today. Increase fluids and stay well hydrated Tylenol/motrin for pain/fever Flonase and OTC antihistamines such as Zyrtec or Claritin 10 mg daily as directed Cepacol spray, cough drops, throat lozenges, warm tea with honey/lemon, gargle salt water to soothe throat Go to the ED if you develop a worsening in your condition- high fever not controlled by Tylenol or Motrin, dehydration, weakness, lethargy, shortness of breath, or chest pain. Follow up with your PCP in 3-5 days if symptoms persist. May follow up with Dr. Connolly- ENT- call office tomorrow to schedule an appointment. Patient Language: [place] Prescriptions: No Action No Home Medications Follow-up/Referrals: Fang Connolly MD [Physician] - 2 Days (Chronic ear pain/sore throat) Suyapa Rogers MD [Primary Care Provider] - Time of Disposition: 19:39 Quality NIHSS Nursing Documentation ED NIHSS nursing documentation: reviewed/agree
[2024-11-17 19:24] VITALS: BP 135/76; PULSE 73; RESP 18; TEMP 36.7; O2SAT 100
[2024-11-17 19:38] LABS: EDSTREPNEGPOS1 Negative (Negative)
== END 2024-11-17 19:42 | disposition home or self-care (01) ==
PROVIDERS: Emergency Provider Nurse Practitioner Family; PCP Family Medicine
DX: H92.03 Otalgia, bilateral (principal); R09.82 Postnasal drip; R07.0 Pain in throat
CPT/HCPCS: 87081; 87880; 99211; 99213; G0463